=== PATIENT | female | born 1955 | race Caucasian/White ===

== ENCOUNTER → 2016-11-05 | Outpatient (CLI) | payer OTHER ==
--- NOTE | 2016-11-05 19:36 | RADIOLOGY REPORT PS360 ---
ULTRASOUND THYROID PROCEDURE: Multiple sagittal & transverse ultrasound images of the thyroid. HISTORY: Thyromegaly fatigue weight gain abnormal lab COMPARISON: None ----- FINDINGS: RIGHT LOBE: 4.3 cm in length x 2.3 cm x 2.2 cm wide. Coarse slightly stippled background architecture may reflect prior thyroiditis. Nodule A: Cystic area 1.4 cm X 1.5 cm length upper pole right lobe. Nodule B: 1.4 cm hyperechoic solid nodule lower pole right lobe. Hypervascular margin. Nodule C: LEFT LOBE: 4.4 cm in length x 1.6 cm wide x 1.8 cm AP Nodule A: 1.6 cm solid nodule midportion left lobe ISTHMUS: generous AP thickness... Measures nearly 5.1 mm AP -----IMPRESSION: Borderline to mild thyromegaly bilaterally with mildly thickened isthmus Right lobe has a solid hyperechoic nodule measuring 1.2 cm at lower right lobe, with a cystic area 1.4 cm size upper right lobe Left lobe with a solid 1.6 cm nodule midportion. Slightly coarse perhaps slightly stippled appearance throughout gland bilaterally, which could reflect prior thyroiditis. Correlation required.
== END ==
LOC: RAD 13:42
DX: E01.0 Iodine-deficiency related diffuse (endemic) goiter (principal)